=== PATIENT | female | born 1985 | race Caucasian/White ===

== ENCOUNTER 2017-03-13 12:05 | Emergency (ER) | payer BC, MEDICAID ==
[2017-03-13 14:21] VITALS: BP 139/88
[2017-03-13] MEDS ORDERED: Albuterol/Ipratropium NEB.SOL* Albuterol 2.5 MG/Ipratropium 0.5 MG 3 ML INH ONE (15:16)
--- NOTE | 2017-03-13 15:17 | UC ---
Respiratory Complaint HPI - HPI Summary HPI Summary: Pt presents with cough, sinus symptoms, ST, and headache. Symptoms started 2 weeks ago. She has been taking mucinex with mild relief at times, but symptoms are still persisting. Has a frontal headache that is relief with blowing her nose, but will come back soon after. Has felt feverish at times, but has not taken her temperature. Says that she gets in coughing "fits" and can't seem to stop. Denies SOB, chest pain, abdominal pain, N/V/D/C. She has been using her daughter's albuterol inhaler with good relief. - History of Current Complaint Chief Complaint: UCRespiratory Stated Complaint: COUGH HEADACHE CHILLS Time Seen by Provider: 03/13/17 15:11 Hx Obtained From: Patient Hx Last Menstrual Period: 03/04/17 Onset/Duration: Gradual Onset Timing: Constant Severity Initially: Moderate Severity Currently: Moderate Pain Intensity: 8 Pain Scale Used: 0-10 Numeric Character: Cough: Productive, Sputum Description: - Yellow/White - Allergies/Home Medications Allergies/Adverse Reactions: Allergies Allergy/AdvReac Type Severity Reaction Status Date / Time No Known Allergies Allergy Verified 03/13/17 14:21 PMH/Surg Hx/FS Hx/Imm Hx Previously Healthy: Yes - Surgical History Surgical History: Yes Surgery Procedure, Year, and Place: LEFT KNEE SURGERY - Family History Known Family History: Positive: Cardiac Disease, Hypertension, Diabetes - Social History Occupation: Employed Full-time Lives: With Family Alcohol Use: None Substance Use Type: None Smoking Status (MU): Never Smoked Tobacco Review of Systems Constitutional: Chills Skin: Negative Eyes: Negative ENT: Sore Throat, Nasal Discharge, Sinus Congestion, Sinus Pain/Tenderness Respiratory: Cough Cardiovascular: Negative Gastrointestinal: Negative Musculoskeletal: Negative Neurological: Headache All Other Systems Reviewed And Are Negative: Yes Physical Exam Triage Information Reviewed: Yes Appearance: Well-Appearing, Well-Nourished Vital Signs: Initial Vital Signs Temp 98.2 F 03/13/17 14:16 Pulse 76 03/13/17 14:16 Resp 15 03/13/17 14:16 BP 139/88 03/13/17 14:16 Pulse Ox 100 03/13/17 14:16 Vital Signs Reviewed: Yes Eyes: Positive: Conjunctiva Clear. Negative: Conjunctiva Inflamed, Discharge ENT: Positive: Hearing grossly normal, Pharynx normal, Nasal congestion, Nasal drainage, TMs normal, Sinus tenderness, Uvula midline. Negative: Pharyngeal erythema, TM bulging, TM dull, TM red, Tonsillar swelling, Tonsillar exudate, Hoarse voice Neck: Positive: Supple, Nontender, No Lymphadenopathy Respiratory: Positive: Chest non-tender, No respiratory distress, No accessory muscle use, Wheezing - Throughout. Negative: Crackles Cardiovascular: Positive: RRR, No Murmur, Pulses Normal Neurological: Positive: Alert Psychological: Positive: Age Appropriate Behavior Skin: Negative: rashes UC Diagnostic Evaluation - Laboratory O2 Sat by Pulse Oximetry: 100 Re-Evaluation - Re-Evaluation First Eval Re-Evaluation Time: 16:05 Change: Improved Comment: Improved. No wheezing. Pt feels significantly better and says she "can breathe again" Respiratory Course/Dx - Course Course Of Treatment: Duoneb given - significantly improved after tx. Suspect bronchitis and sinusitis. - Differential Dx/Diagnosis Differential Diagnosis/HQI/PQRI: Asthma, Bronchitis, Influenza, Laryngitis, Sinusitis Provider Diagnoses: Bronchitis. Sinusitis Discharge - Discharge Plan Condition: Stable Disposition: HOME Prescriptions: Albuterol HFA INHALER* [Ventolin HFA Inhaler*] 2 puff INH Q6H PRN #1 mdi PRN Reason: Sob/Wheezing Azithromycin TAB* [Zithromax TAB (Z-MURALI) 250 mg #6 tabs] 2 tab PO .TODAY, THEN 1 DAILY #1 murali Benzonatate CAP* [Tessalon 100 MG CAP*] 100 mg PO TID PRN #21 cap PRN Reason: Cough Patient Education Materials: Sinusitis (ED), Acute Bronchitis (ED) Forms: *Work Release Referrals: Emiliano Dumont MD [Primary Care Provider] - Additional Instructions: If you develop a fever, shortness of breath, chest pain, new or worsening symptoms - please call your PCP or go to the ED. Your blood pressure was high at todays visit. Please see your primary provider within 4 weeks for recheck and re-evaluation.
== END 2017-03-13 15:30 | disposition home or self-care (01) ==
LOC: UCEAST 12:05
DX: J40 Bronchitis, not specified as acute or chronic (principal); J32.9 Chronic sinusitis, unspecified
CPT/HCPCS: 99212; A9270-GY; G0463

== ENCOUNTER 2017-04-25 17:53 | Emergency (ER) | payer BC, MEDICAID ==
[2017-04-25 20:23] VITALS: BP 137/84
--- NOTE | 2017-04-25 21:25 | UC ---
Respiratory Complaint HPI - HPI Summary HPI Summary: 31 serbian WF c/o neck achiness, REYNAGA and generalized malaise x 2days. URI sx started 4 days ago after exposed to co-worker who had the flu - History of Current Complaint Chief Complaint: UCRespiratory Stated Complaint: RUNNY NOSE, AND COUGH Time Seen by Provider: 04/25/17 20:52 Hx Obtained From: Patient Hx Last Menstrual Period: 04/12/2017 Onset/Duration: Gradual Onset, Lasting Days Severity Initially: Moderate Severity Currently: Moderate Pain Intensity: 8 - Allergies/Home Medications Allergies/Adverse Reactions: Allergies Allergy/AdvReac Type Severity Reaction Status Date / Time No Known Allergies Allergy Verified 03/13/17 14:21 Home Medications: Home Medications Dm/Pseudoephed/Acetaminophen [Day-Time Cold-Flu Softgel] 04/25/17 [History] PMH/Surg Hx/FS Hx/Imm Hx - Additional Past Medical History Additional PMH: none Previously Healthy: Yes - Surgical History Surgical History: Yes Surgery Procedure, Year, and Place: LEFT KNEE SURGERY - Family History Known Family History: Positive: Cardiac Disease, Hypertension, Diabetes - Social History Alcohol Use: None Substance Use Type: None Smoking Status (MU): Never Smoked Tobacco Review of Systems Constitutional: Fever, Chills, Fatigue Skin: Negative Eyes: Negative ENT: Sinus Congestion Respiratory: Negative Cardiovascular: Negative Gastrointestinal: Negative Genitourinary: Negative Motor: Negative Neurovascular: Negative Musculoskeletal: Myalgia - neck pains Neurological: Negative Psychological: Negative Is Patient Immunocompromised?: No All Other Systems Reviewed And Are Negative: Yes Physical Exam Triage Information Reviewed: Yes Appearance: Obese Vital Signs: Initial Vital Signs Temp 36.3 C 04/25/17 20:18 Pulse 78 04/25/17 20:18 Resp 18 04/25/17 20:18 BP 137/84 04/25/17 20:18 Pulse Ox 99 04/25/17 20:18 Eye Exam: Normal ENT: Positive: Nasal congestion Dental Exam: Normal Dental: Positive: Cervical Lymphadenopathy Neck exam: Normal Neck: Positive: 1 Respiratory Exam: Normal Cardiovascular Exam: Normal Abdominal Exam: Normal Musculoskeletal Exam: Normal Neurological Exam: Normal Psychological Exam: Normal Skin Exam: Normal UC Diagnostic Evaluation - Laboratory O2 Sat by Pulse Oximetry: 99 Respiratory Course/Dx - Course Course Of Treatment: Rapid flu positive for Flu A - Differential Dx/Diagnosis Provider Diagnoses: Influenza A. Elevated BP due to acute illness without dx of HTN Discharge - Discharge Plan Condition: Stable Disposition: HOME Prescriptions: Oseltamivir Phosphate [Tamiflu] 75 mg PO BID 5 Days #10 capsule Patient Education Materials: Influenza (ED) Referrals: Emiliano Dumont MD [Primary Care Provider] - Additional Instructions: as tolerated, supportive tx and Take Tamiflu as directed
[2017-04-25] MEDS: Oseltamivir CAP* 75 MG CAP PO ONE (22:12)
== END 2017-04-25 22:15 | disposition home or self-care (01) ==
LOC: UCEAST 17:53
DX: J10.1 Influenza due to other identified influenza virus with other respiratory manifestations (principal); R03.0 Elevated blood-pressure reading, without diagnosis of hypertension; Z20.828 Contact with and (suspected) exposure to other viral communicable diseases
CPT/HCPCS: 87502; 99211; A9270-GY; G0463

== ENCOUNTER 2017-11-12 16:52 | Emergency (ER) | payer BC, MEDICAID ==
[2017-11-12 18:20] VITALS: BP 146/68
[2017-11-12] MEDS ORDERED: Lidocaine 2% VISCOUS* 15 ML UDC PO ONE (19:16)
[2017-11-12] MEDS ORDERED: Amoxicillin PO (*) 500 MG CAP PO ONE (19:19)
--- NOTE | 2017-11-12 19:20 | UC ---
Throat Pain/Nasal Dani HPI - HPI Summary HPI Summary: Patient complains of severe sore throat pain, neck pain, swollen glands, fever 2 days. Denies cough, runny nose, ear pain, REYNAGA, CP, SOB, N/V/D, abdominal pain , change in urine, change in BM. Medical history is none. - History of Current Complaint Chief Complaint: UCGeneralIllness Stated Complaint: ST,FEVER Time Seen by Provider: 11/12/17 18:45 Hx Obtained From: Patient Hx Last Menstrual Period: 11/09/2017 Onset/Duration: Gradual Onset Severity: Severe Pain Intensity: 9 Pain Scale Used: 0-10 Numeric Cough: None Associated Signs & Symptoms: Positive: Negative - Allergies/Home Medications Allergies/Adverse Reactions: Allergies Allergy/AdvReac Type Severity Reaction Status Date / Time No Known Allergies Allergy Verified 03/13/17 14:21 Home Medications: Home Medications Acetaminophen [Tylenol] 11/12/17 [History] PMH/Surg Hx/FS Hx/Imm Hx - Surgical History Surgical History: Yes Surgery Procedure, Year, and Place: LEFT KNEE SURGERY - Family History Known Family History: Positive: Cardiac Disease, Hypertension, Diabetes - Social History Alcohol Use: None Substance Use Type: None Smoking Status (MU): Never Smoked Tobacco Review of Systems Constitutional: Fever Skin: Negative Eyes: Negative ENT: Sore Throat Respiratory: Negative Cardiovascular: Negative Gastrointestinal: Negative Genitourinary: Negative Motor: Negative Neurovascular: Negative Musculoskeletal: Negative Neurological: Negative Psychological: Negative All Other Systems Reviewed And Are Negative: Yes Physical Exam Triage Information Reviewed: Yes Appearance: Well-Appearing Vital Signs: Initial Vital Signs Temp 97.5 F 11/12/17 18:14 Pulse 83 11/12/17 18:14 Resp 18 11/12/17 18:14 BP 146/68 11/12/17 18:14 Pulse Ox 100 11/12/17 18:14 Vital Signs Reviewed: Yes Eye Exam: Normal ENT: Positive: Pharyngeal erythema, TMs normal, Tonsillar swelling, Tonsillar exudate, Uvula midline. Negative: Nasal congestion, Trismus, Muffled voice, Hoarse voice, Sinus tenderness Neck exam: Normal Respiratory Exam: Normal Cardiovascular Exam: Normal Abdominal Exam: Normal Musculoskeletal Exam: Normal Neurological Exam: Normal Psychological Exam: Normal Skin Exam: Normal Throat Pain/Nasal Course/Dx - Course Course Of Treatment: Patient complains of severe sore throat pain, neck pain, swollen glands, fever 2 days. Denies cough, runny nose, ear pain, REYNAGA, CP, SOB , N/V/D, abdominal pain, change in urine, change in BM. Medical history is none. Vital signs normal. Strep test negative. Physical exam indicates strep throat. Rx for amoxicillin. - Differential Dx/Diagnosis Provider Diagnoses: Pharyngitis Discharge - Sign-Out/Discharge Documenting (check all that apply): Patient Departure All imaging exams completed and their final reports reviewed: No Studies - Discharge Plan Condition: Stable Disposition: HOME Prescriptions: Amoxicillin 500 mg PO BID 10 Days #20 capsule Lidocaine 2% VISCOUS* [Xylocaine 2% Viscous*] 15 ml SWISH SPIT Q6H PRN #1 btl PRN Reason: Pain Patient Education Materials: Pharyngitis (ED) Forms: *Work Release Referrals: Emiliano Dumont MD [Primary Care Provider] - Additional Instructions: Take antibiotics as directed. - Billing Disposition and Condition Condition: STABLE Disposition: Home - Attestation Statements Provider Attestation: I was available for consult. This patient was seen by the [facility]. The patient was not presented to, seen by, or examined by me. -Ayush
== END 2017-11-12 19:33 | disposition home or self-care (01) ==
LOC: UCEAST 16:52
DX: J02.9 Acute pharyngitis, unspecified (principal)
CPT/HCPCS: 87651; 99212; A9270-GY; G0463

== ENCOUNTER 2019-05-11 17:59 | Emergency (ER) | payer OTHER ==
[2019-05-11 21:44] VITALS: BP 128/68
--- NOTE | 2019-05-11 21:48 | UC ---
FLU HPI - HPI Summary HPI Summary: 33-year-old female comes in with influenza-like symptoms for 1 day. Her and daughter are both positive for the flu. She's had fevers chills body aches and fatigue. She has taken some [id number] medications which do help some of the symptoms. No shortness of breath or wheezing. - History of Current Complaint Chief Complaint: UCGeneralIllness Stated Complaint: FLU SYMPTOMS Time Seen by Provider: 05/11/19 21:31 Hx Last Menstrual Period: 18 days ago Pain Intensity: 0 - Allergy/Home Medications Allergies/Adverse Reactions: Allergies Allergy/AdvReac Type Severity Reaction Status Date / Time No Known Allergies Allergy Verified 05/11/19 21:41 Home Medications: Home Medications Ibuprofen TAB* [Advil TAB*] 400 mg PO Q6H PRN 10/13/15 [History] Acetaminophen [Tylenol] 1,000 mg PO Q12H PRN 11/12/17 [History] Oseltamivir CAP* [Tamiflu CAP*] 75 mg PO BID #10 cap 05/11/19 [Rx] PMH/Surg Hx/FS Hx/Imm Hx Previously Healthy: Yes - Surgical History Surgical History: Yes Surgery Procedure, Year, and Place: LEFT KNEE SURGERY - Family History Known Family History: Positive: Cardiac Disease, Hypertension, Diabetes - Social History Alcohol Use: None Substance Use Type: None Smoking Status (MU): Never Smoked Tobacco Review of Systems All Other Systems Reviewed And Are Negative: Yes Constitutional: Positive: Fever, Chills, Fatigue, Other - SEE HPI Skin: Positive: Negative Eyes: Positive: Negative ENT: Positive: Sore Throat - MILD, Nasal Discharge Respiratory: Positive: Negative Cardiovascular: Positive: Negative Gastrointestinal: Positive: Negative Motor: Positive: Negative Neurovascular: Positive: Negative Musculoskeletal: Positive: Myalgia Neurological/Mental Status: Positive: Headache Psychological: Positive: Negative Is Patient Immunocompromised?: No Physical Exam Triage Information Reviewed: Yes Appearance: No Pain Distress, Well-Nourished, Ill-Appearing - MILD Vital Signs: Initial Vital Signs Temp 98.0 F 05/11/19 21:43 Pulse 76 05/11/19 21:43 Resp 18 05/11/19 21:43 BP 128/68 05/11/19 21:43 Pulse Ox 98 05/11/19 21:43 Vital Signs Reviewed: Yes Eye Exam: Normal Eyes: Positive: Conjunctiva Clear ENT: Positive: Pharynx normal, Nasal congestion, Nasal drainage, TMs normal Neck: Positive: Supple Respiratory: Positive: Lungs clear, Normal breath sounds, No respiratory distress Cardiovascular: Positive: RRR Musculoskeletal: Positive: Strength Intact, ROM Intact Neurological: Positive: Alert, Muscle Tone Normal Psychological: Positive: Normal Response To Family, Age Appropriate Behavior Skin Exam: Normal Flu Course/Dx - Course Course Of Treatment: Discussed the results with the patient. She prefers a prescription for Tamiflu to be used if she gets influenza symptoms as both her and daughter are positive for flu. - Differential Dx/Diagnosis Provider Diagnosis: Influenza-like illness Discharge ED - Sign-Out/Discharge Documenting (check all that apply): Patient Departure All imaging exams completed and their final reports reviewed: No Studies - Discharge Plan Condition: Stable Disposition: HOME Prescriptions: Oseltamivir CAP* [Tamiflu CAP*] 75 mg PO BID #10 cap Patient Education Materials: Viral Syndrome (ED) Referrals: Emiliano Dumont MD [Primary Care Provider] - Additional Instructions: FOLLOW UP WITH YOUR DOCTOR IF NOT COMPLETELY IMPROVED. Started Tamiflu if you have influenza-like symptoms. GET REEVALUATED SOONER IF NOT IMPROVED OR WORSE OR ANY QUESTIONS OR CONCERNS. - Billing Disposition and Condition Condition: STABLE Disposition: Home
[2019-05-11 21:51] LABS: Influenza A Molecular Negative (Negative); Influenza B Molecular Negative (Negative)
== END 2019-05-11 22:10 | disposition home or self-care (01) ==
LOC: UCEAST 17:59
DX: R50.9 Fever, unspecified (principal); J02.9 Acute pharyngitis, unspecified; M79.10 Myalgia, unspecified site; R53.83 Other fatigue; R51 Headache; J34.89 Other specified disorders of nose and nasal sinuses
CPT/HCPCS: 99212; G0463

== ENCOUNTER 2020-06-13 06:38 | Inpatient (IN) ==
[2020-06-13] MEDS ORDERED: Morphine PF AMP (0.5MG/ML) 5 MG/10 ML AMP ONE (06:57)
[2020-06-13] MEDS ORDERED: Sodium Citrate/Citric Acid LIQ 15 ML UDC ONE (07:45)
[2020-06-13] MEDS ORDERED: Metoclopramide 5 MG/ML VIAL (10 mg) ONE (07:45)
[2020-06-13] MEDS ORDERED: Buffered Lidocaine 1% SYRIN 1 ml INTRADERM ONE (08:22)
[2020-06-13] MEDS ORDERED: Lactated Ringers 1000 ml BAG 1,000 ML IV ONE (08:22)
[2020-06-13] MEDS ORDERED: ceFOXitin 2 GM PREMIX 50 ML IVPB ONE (08:30)
[2020-06-13] MEDS ORDERED: Lactated Ringers 1000 ml BAG 1,000 ML IV SCH ×2 (09:00→11:00)
[2020-06-13] MEDS ORDERED: Phenylephrine IV 10 MG/ML 1 ml VIAL ONE (09:22)
[2020-06-13] MEDS ORDERED: Dexamethasone IV 4 MG/ML VIAL 1 ml VIAL ONE (09:31)
[2020-06-13] MEDS ORDERED: Ondansetron 4 mg VIAL 2 MG/ML 2 ml VIAL ONE (09:31)
[2020-06-13] MEDS ORDERED: Lidocaine 2% PF 10 ML AMP ONE (09:32)
[2020-06-13] MEDS ORDERED: Oxytocin 10 UNITS/ML 1 ML VIAL ONE (10:11)
[2020-06-13] MEDS ORDERED: Witch Hazel PAD JAR TOPICAL PRN (10:53)
[2020-06-13] MEDS ORDERED: Glycerin ADULT 2.4 gm SUPP PR PRN (10:53)
[2020-06-13] MEDS ORDERED: Dibucaine 1% OINT 28.35 GM TUBE PR PRN (10:53)
[2020-06-13] MEDS ORDERED: Naloxone 0.4 mg VIAL 0.4 mg/ml 1 ml VIAL IV PRN (12:06)
[2020-06-13 12:58] LABS: Urine Appearance Clear; Urine Bilirubin Negative (Negative); Urine Blood 1+ (Negative); Urine Color Yellow; Urine Glucose Negative (Negative); Urine Ketones Trace (Negative); Urine Nitrite Negative (Negative); Urine Protein Negative (Negative); Urine Urobilinogen Negative (Negative)
[2020-06-13 13:03] LABS: Urine Benzodiazepine Screen None Detected (None Detect); Urine Cannabinoids Screen None Detected (None Detect); Urine Opiates Screen None Detected (None Detect)
[2020-06-13 13:16] LABS: Urine Bacteria Absent (Absent); Urine Red Blood Cell 2+(6-10/hpf) (Absent); Urine Squamous Epithelial Cell Present (Absent); Urine White Blood Cell Trace(0-5/hpf) (Absent)
[2020-06-14 08:31] LABS: ABS Lymphocytes 2.9 10^3/ul (1.0-4.8); ABS Monocytes 1.1 10^3/ul (0-0.8); ABS Neutrophils 14.1 10^3/ul (1.5-7.7); Eosinophil % 0.1 %; Hematocrit 28 % (35-47); Hemoglobin 9.1 g/dL (12.0-16.0); Mean Corpuscular HGB Conc 33 g/dL (31-36); Mean Corpuscular Hemoglobin 29 pg (27-31); Mean Corpuscular Volume 87 fL (80-97); Mean Platelet Volume 8.5 fL (7.4-10.4); Platelet Count 273 10^3/uL (150-450); Red Blood Count 3.16 10^6 /uL (3.70-4.87); Red Cell Distribution Width 16 % (10-15); White Blood Count 18.2 10^3/uL (3.5-10.8)
[2020-06-15 08:16] VITALS: BP 132/73
== END 2020-06-15 12:54 | disposition home or self-care (01) | DRG 540 ==
LOC: MCHOB 06:38
PROVIDERS: ADMIT Obstetrics & Gynecology; ATTEND Obstetrics & Gynecology